=== PATIENT | male | born 1960 | race Caucasian/White ===

== ENCOUNTER 2017-07-23 11:59 | Emergency (ER) | payer OTHER ==
[2017-07-23] MEDS ORDERED: Lidocaine 1% 30 ML SDV INJECT ONE (12:19)
--- NOTE | 2017-07-23 14:59 | EDM.PDOC ---
ED HPI GENERAL MEDICAL PROBLEM - General Chief Complaint: Bite:Animal, Insect Stated Complaint: DOG BITE RIGHT HAND Time Seen by Provider: 07/23/17 12:05 Source of Information: Reports: Patient History Limitations: Reports: No Limitations - History of Present Illness INITIAL COMMENTS - FREE TEXT/NARRATIVE: Pt. states that he was bitten by a dog. Police dept. was contacted and stated that the dog has had its rabies vaccinations. Pt. states that his tetanus is UTD. He states the his injuries are isolated to his R thumb. Onset: Today Location: Reports: Upper Extremity, Right - Related Data Allergies Allergy/AdvReac Type Severity Reaction Status Date / Time No Known Allergies Allergy Verified 07/23/17 12:21 Home Meds: Home Meds . [Unable to Verify Home Med List] 07/23/17 [History] Past Medical History Cardiovascular History: Reports: Hypertension Social & Family History - Tobacco Use Smoking Status *Q: Unknown Ever Smoked ED ROS GENERAL - Review of Systems Review Of Systems: See Below Constitutional: Reports: No Symptoms Musculoskeletal: Reports: Hand Pain (right thumb) ED EXAM, ANIMAL BITE - Physical Exam Exam: See Below Exam Limited By: No Limitations General Appearance: Alert, WD/WN, No Apparent Distress Extremities: Normal Inspection, Normal Range of Motion, Normal Capillary Refill , Other (laceration to lateral aspect of thumb and puncture wounds to dorsum of thumb) Neurological: Alert, Oriented, CN II-XII Intact, Normal Cognition, Normal Gait, Normal Reflexes, No Motor/Sensory Deficits ED ANIMAL BITE PROCEDURES - Additional/Other Procedure(s) Other (Free Text) Procedure(s): The laceration was irrigated with copious amounts of normal saline. The laceration was prepped and draped in usual sterile fashion. The laceration was anesthetized with 3 ml of 1% lidocaine. The laceration was debrided and further cleansed. A small amount of redundant, devitalized tissue was excised from the laceration which was quite superficial. The laceration was not sutures and was left to heal via secondary intention. Course - Vital Signs Last Recorded V/S: Last Vital Signs Temp 36.0 C 07/23/17 12:05 Pulse 80 07/23/17 12:05 Resp 18 07/23/17 12:05 BP 159/101 H 07/23/17 12:05 Pulse Ox 98 01/19/18 12:05 - Orders/Labs/Meds Meds: Medications Discontinued Medications Generic Name Dose Route Start Last Admin Trade Name Leonor PRN Reason Stop Dose Admin Lidocaine HCl 30 ml 07/23/17 12:19 07/23/17 12:35 Xylocaine-Mpf 1% INJECT 07/23/17 12:20 30 ml ONETIME ONE Administration Departure - Departure Time of Disposition: 13:00 Disposition: Home, Self-Care 01 Clinical Impression: Animal bite - Discharge Information Instructions: Animal Bite, [id number], Pasteurella Multocida Infection Referrals: Flash Morel MD [Primary Care Provider] - Forms: ED Department Discharge Additional Instructions: Augmentin 500mg twice daily for 7 days Ibuprofen 600mg every 6 hours for discomfort change dressing daily Return if redness, swelling or discharge from the area.
== END 2017-07-23 12:45 | disposition home or self-care (01) ==
LOC: VM.ED 11:59
DX: S61.011A Laceration without foreign body of right thumb without damage to nail, initial encounter (principal); S61.031A Puncture wound without foreign body of right thumb without damage to nail, initial encounter; I10 Essential (primary) hypertension; W54.0XXA Bitten by dog, initial encounter
CPT/HCPCS: 99283; 99283-GF

== ENCOUNTER 2019-06-03 18:38 | Emergency (ER) | payer BC, OTHER ==
[2019-06-03] MEDS ORDERED: Oxymetazoline 0.05% Nasal Spray 30 ML Bottle NAS ONE (18:45)
--- NOTE | 2019-06-03 18:45 | EDM.PDOC ---
ED HPI GENERAL MEDICAL PROBLEM - General Stated Complaint: BLOODY NOSE Time Seen by Provider: 06/03/19 18:44 - History of Present Illness INITIAL COMMENTS - FREE TEXT/NARRATIVE: Pt with nose bleed that he can not get under control. - Related Data Allergies Allergy/AdvReac Type Severity Reaction Status Date / Time No Known Allergies Allergy Verified 06/03/19 18:52 Home Meds: Home Meds Losartan Potassium 25 mg DAILY 06/03/19 [History] Venlafaxine HCl [Venlafaxine ER] 75 mg DAILY 06/03/19 [History] Past Medical History Cardiovascular History: Reports: Hypertension ED ROS GENERAL - Review of Systems Review Of Systems: See Below Constitutional: Reports: No Symptoms HEENT: Reports: Nosebleed Respiratory: Reports: No Symptoms Cardiovascular: Reports: No Symptoms Endocrine: Reports: No Symptoms GI/Abdominal: Reports: No Symptoms : Reports: No Symptoms Musculoskeletal: Reports: No Symptoms Skin: Reports: No Symptoms ED EXAM, GENERAL - Physical Exam Exam: See Below Free Text/Narrative:: Afrin spray bleeding stopped. Exam Limited By: No Limitations General Appearance: Alert, WD/WN Eye Exam: Bilateral Eye: PERRL Ears: Normal External Exam Nose: Other (nose bleeding minimal amount ) Throat/Mouth: Normal Inspection Head: Atraumatic, Normocephalic Neck: Normal Inspection, Supple, Non-Tender, Full Range of Motion Respiratory/Chest: No Respiratory Distress Course - Orders/Labs/Meds Meds: Medications Discontinued Medications Generic Name Dose Route Start Last Admin Trade Name Freq PRN Reason Stop Dose Admin Oxymetazoline HCl 2 ml 06/03/19 18:45 06/03/19 18:56 Nasal Decongestant [place] MATILDA 06/03/19 18:46 2 sprays(dnu) ONETIME ONE Administration Departure - Departure Time of Disposition: 19:20 Disposition: Home, Self-Care 01 Condition: Good Clinical Impression: Bleeding nose - Discharge Information Instructions: Nosebleed, Adult
== END 2019-06-03 19:25 | disposition home or self-care (01) ==
LOC: VM.ED 18:38
DX: R04.0 Epistaxis (principal); I10 Essential (primary) hypertension; Z79.899 Other long term (current) drug therapy
CPT/HCPCS: 99283; A9270